=== PATIENT | female | born 1940 | race African-American/Black ===

== ENCOUNTER 2018-09-07 20:59 | Inpatient (IN) | payer MEDICARE, OTHER ==
--- NOTE | 2018-09-07 22:02 | ED Physician Chart ---
ED Chief Complaint/HPI - Patient Information Date Seen:: 09/07/18 Time Seen:: 21:57 Chief Complaint:: psych clearance History of Present Illness:: 77 yr old female here psych clearance Allergies:: Allergies Allergy/AdvReac Type Severity Reaction Status Date / Time Sulfa (Sulfonamide Allergy Verified 09/07/18 21:17 Antibiotics) Vitals:: Vital Signs - 8 hr 09/07/18 21:18 Temp 96.8 F HR 70 RR 18 BP 163/99 O2 Sat % 99 Family Medical History - Family Member Mother History Unknown: Yes ED Labs/Radiology/EKG Results - Lab Results Results: Laboratory Tests 09/07/18 21:46 POC Glucose 74 ED Septic Shock - . Is Septic Shock (SBP<90, OR Lactate>4 mmol\L) present?: No - <6hrs of presentation: Vital Signs: Vital Signs - 8 hr 09/07/18 21:18 Temp 96.8 F HR 70 RR 18 BP 163/99 O2 Sat % 99 ED Reassessment (Disposition) - Reassessment Reassessment Condition:: Improved - Diagnosis Diagnosis:: psych clearance - Aftercare/Follow up Instructions Aftercare/Follow-Up Instructions:: Counseled pt regarding lab results/diagnosis & need follow up - Patient Disposition Discharge/Transfer:: Home Condition at Disposition:: Stable
[2018-09-07 22:28] LABS: % BASOPHILS 1.6 % (0.0-2.0); % EOSINOPHILS 4.5 % (0.0-5.0); % LYMPHOCYTES 33.3 % (20.0-50.0); % MONOCYTES 6.3 % (2.0-10.0); % NEUTROPHILS 54.3 % (40.0-80.0); BASOPHILE ABSOLUTE 0.1 Th/cumm (0-0.2); EOSINOPHILE ABSOLUTE 0.2 Th/cmm (0.1-0.4); HEMATOCRIT 36.8 % (41.0-60); HEMOGLOBIN 12.1 gm/dL (12-16); LYMPHOCYTE ABSOLUTE 1.4 Th/cmm (1.5-3.0); MEAN CELL VOLUME 86.4 fl (81-100); MEAN CORPUSCULAR HEMOGLOBIN 28.3 pg (27.0-31.0); MEAN CORPUSCULAR HGB CONC 32.8 pg (28.0-36.0); MONOCYTE ABSOLUTE 0.3 Th/cmm (0.3-1.0); NEUTROPHILE ABSOLUTE 2.2 Th/cmm (1.8-8.0); PLATELET COUNT 463 Th/cmm (150-400); RED BLOOD COUNT 4.26 Mil/cmm (3.80-5.20); RED CELL DISTRIBUTION WIDTH 13.6 % (11.5-20.0); WHITE BLOOD COUNT 4.2 Th/cmm (4.8-10.8)
[2018-09-07 22:47] LABS: ALB/GLOB RATIO 1.1 (1.0-1.8); ALBUMIN 3.8 gm/dL (3.7-5.3); ALKALINE PHOSPHATASE 138 U/L (34-104); ANION GAP 12.1 (7.0-16.0); BILIRUBIN,TOTAL 0.6 mg/dL (0.3-1.0); BUN - UREA NITROGEN 19 mg/dL (7-25); CARBON DIOXIDE 26.3 mEq/L (21.0-31.0); CHLORIDE 104 mEq/L (98-107); CREATININE - SERUM 1.3 mg/dL (0.6-1.2); GLUCOSE 91 mg/dL (70-105); POTASSIUM SERUM 3.4 mEq/L (3.5-5.1); SGOT 13 U/L (13-39); SGPT/ALT 6 U/L (7-52); SODIUM SERUM 139 mEq/L (136-145); TOTAL PROTEIN,SERUM 7.4 gm/dL (6.0-8.3)
[2018-09-08 00:44] VITALS: BP 105/65
[2018-09-08] MEDS ORDERED: Fleet Enema 135 mL RC PRN (00:57)
[2018-09-08] MEDS ORDERED: Albuterol/Ipratropium Neb 3 ML AERS HHN PRN (00:57)
[2018-09-08] MEDS ORDERED: Non-Formulary Item 1 EA (Dextran 70/Hypromellose [Artificial Tears] 1 EACH) OP PRN (00:57)
[2018-09-08] MEDS ORDERED: Magnesium Hydroxide (MOM) 30 mL UDC PO PRN (01:22)
[2018-09-08] MEDS: INSULIN ASPART, RECOMBINANT 100 UNITS/ML SUBQ SCH (06:32)
[2018-09-08 06:42] LABS: CHOLESTEROL 201 mg/dL (<200); HDL -HIGH DENSITY LIPOPROTEIN 74 mg/dL (23-92); TRIGLYCERIDES 46 mg/dL (<150)
[2018-09-08] MEDS ORDERED: Polyvinyl Alcohol Ophth Soln 15 mL Bottle EACH EYE PRN (07:00)
[2018-09-08] MEDS ORDERED: INSULIN LISPRO SUBQ SCH (07:30)
[2018-09-08] MEDS: Multivitamin Tab PO SCH (09:44)
[2018-09-08] MEDS: Potassium Chloride 20 mEq ER Tab PO SCH (09:44)
[2018-09-08] MEDS: Lactobacillus Rhamnosus GG 15 Billion CFU CAP.SPRINK PO SCH (09:44)
[2018-09-08] MEDS: Ferrous Sulfate 325 MG TAB PO SCH (09:44)
[2018-09-08] MEDS: Pantoprazole 40 mg EC Tab PO SCH ×2 (09:51→16:07)
--- NOTE | 2018-09-08 14:09 | History & Physical ---
ADMIT DATE: 09/08/2018 IDENTIFYING INFORMATION: The patient is a 77-year-old female. CHIEF COMPLAINT: "I have too many problems at [facility]." HISTORY OF PRESENT ILLNESS: The patient was referred from [facility], patient has been striking, has been easily agitated. She sleeps well, eats well. The patient has amputated left leg three-quarter. She denies any auditory hallucinations. The patient denies any suicidal ideation, homicidal ideation; however, she looked disheveled, disorganized, internally preoccupied. PAST PSYCHIATRIC HISTORY: The patient reports she was seen by the psychiatrist at [facility]. She denies any prior suicide attempt. She denies prior hospitalizations. She report never tried to harm herself before. MEDICAL HISTORY: The patient is allergic to LASIX, LORAZEPAM, and SULFA. She has amputated left leg three-quarter. The patient also have hyperthyroidism, she is on methimazole. FAMILY AND SOCIAL HISTORY: The patient is single, never , no children. No kids. She lives at [facility]. LVM and no further information is available from the patient. MENTAL STATUS EXAMINATION: The patient was appropriately dressed, not well groomed. She was in a wheelchair. She has an amputated left leg. She denies any current intent to harm himself. Denies any intent to harm anybody. She reported having problems at [facility], unable to specify what problems, they are. She believed this is unable to tell me the date, where she is, why she is here, but she has been here because she has problem at [facility]. Her long-term memory is poor, cannot tell me her age. Recent memory is poor, she cannot remember the event exactly to admission. She denies any visual hallucinations, paranoia, any intent to harm herself or anybody. Her insight and judgment is impaired. IMPRESSION: Depression, not otherwise specified; psychosis, dementia. MEDICAL DIAGNOSES: Deferred to the medical doctor. She has amputated left leg. Hyperthyroidism. PLAN: We will do group therapy, milieu therapy, and individual therapy. ESTIMATED LENGTH OF STAY: 3-7 days. DISCHARGE CRITERIA: Decrease agitation, confusion after discharge, outpatient treatment. [facility]# [id number]
--- NOTE | 2018-09-08 18:20 | History & Physical ---
ADMIT DATE: PATIENT'S IDENTIFICATION: A 77-year-old female. REQUESTING PHYSICIAN: Dr. Viji Ferris. REASON FOR CONSULTATION: Medical management. CHIEF COMPLAINT: "I am fine." HISTORY SOURCE: Reviewing the chart, talking to nursing staff, and Emergency Room MD note. HISTORY OF PRESENT ILLNESS: A 77-year-old -[place] female with history of peripheral vascular disease, status post left below knee amputation, gastroesophageal reflux disease, hypertension, history of chronic pain syndrome, diabetes mellitus, presented to [facility] Emergency Room for evaluation of increasing agitation. The patient was seen by Emergency Room MD and subsequently advised to be admitted to Geropsych Unit for psychiatric care. PAST MEDICAL HISTORY: Remarkable for: 1. Hypertension. 2. Diabetes. 3. Peripheral vascular disease. 4. DJD. 5. Chronic pain syndrome. 6. Status post left below knee amputation. MEDICATIONS: Lactobacillus, artificial tears, Colace, Dulcolax, Fleet's enema, NovoLog insulin, hydrochlorothiazide, methimazole for hyperthyroidism, milk of magnesia, multivitamin, [place], pantoprazole, Tylenol, vitamin C, and Zofran. ALLERGIES: THE PATIENT IS ALLERGIC TO SULFA, LORAZEPAM AND LASIX. SOCIAL HISTORY: She is a resident of senior care. No history of smoking cigarette, alcohol, or drug use. FAMILY MEDICAL HISTORY: Unavailable. REVIEW OF SYSTEMS: Unable to get meaningful history from the patient due to current condition. PHYSICAL EXAMINATION: GENERAL: The patient is alert, awake, follows simple 1-step command. VITAL SIGNS: Temperature 98, pulse 74, respiratory rate 18, blood pressure 136/80. SKIN: Warm to touch. HEENT: Normocephalic, atraumatic. Extraocular muscles are intact. Exophthalmus noted. Tongue was pink and coated. Poor dentition noted. NECK: Supple, no JVD, no hepatojugular reflex. No lymphadenopathy, thyromegaly, or carotid bruit. HEART: Both heart sounds are regular. No S3, no S4, no murmur. CHEST AND LUNG: Equal in expansion, no expiratory wheezing. ABDOMEN: Soft. No guarding, no rigidity. Liver and spleen not palpable. No palpable mass. EXTREMITIES: Left above knee amputation noted. Peripheral pulses +1. No calf tenderness. NEUROLOGIC: Alert, awake, follows simple commands. Complex command, the patient is unable to follow. Mini mental status examination, unable to perform. Otherwise, the patient is moving upper and lower extremities without any difficulty. AVAILABLE DIAGNOSTIC DATA: Performed in the Emergency Room as well as stated [facility] has been reviewed as well. CLINICAL IMPRESSION: 1. Psychiatric disorder exacerbation. 2. Hypertension. 3. Diabetes. 4. Peripheral vascular disease. 5. Chronic kidney disease. 6. Degenerative joint disease. 7. Fall risk. 8. Hyperthyroidism. 9. Status post left above knee amputation. 10. Debility. 11. Decline in self-care and mobility. PLAN: 1. The patient is admitted at this time to Geropsych Unit. Psychiatric evaluation and management deferred to psychiatrist. 2. Resume her medications which includes sliding scale insulin for diabetes, methimazole for hyperthyroidism, [place] for pain control, hydrochlorothiazide for hypertension along with Protonix for GERD. Continue to require symptoms therapy, medication management, general nursing care, fall precautions, nutritional support as well. We will continue to follow this patient during the stay in the hospital. I sincerely thank you, Dr. Viji Ferris, for giving me the opportunity to participating in patient of yours. JOB# [id number]
[2018-09-09] MEDS: Pantoprazole 40 mg EC Tab PO SCH ×2 (06:36→09:00)
[2018-09-09] MEDS: INSULIN ASPART, RECOMBINANT 100 UNITS/ML SUBQ SCH (06:36)
[2018-09-09] MEDS: Potassium Chloride 20 mEq ER Tab PO SCH (09:15)
[2018-09-09] MEDS: Multivitamin Tab PO SCH (09:15)
[2018-09-09] MEDS: Lactobacillus Rhamnosus GG 15 Billion CFU CAP.SPRINK PO SCH (09:15)
[2018-09-09] MEDS: Ferrous Sulfate 325 MG TAB PO SCH (09:15)
--- NOTE | 2018-09-09 22:56 | Progress Notes ---
DATE: 09/09/2018 Case was discussed with staff of the patient, reviewed records. The patient continues to be confused, continues to be unable to make safe plan for self-care. Continues to be easily agitated, continues to have poor insight, unable to make safe plan for self-care. No side effects with the medication, no sedation, no nausea, no extrapyramidal symptoms. Continues to look disheveled, disorganized, internally preoccupied and we will continue outpatient group therapy, milieu therapy, and adjust medication as needed. [facility]# [id number]
[2018-09-10] MEDS: Pantoprazole 40 mg EC Tab PO SCH ×2 (06:45→16:30)
[2018-09-10] MEDS: INSULIN ASPART, RECOMBINANT 100 UNITS/ML SUBQ SCH (07:07)
[2018-09-10] MEDS: Ferrous Sulfate 325 MG TAB PO SCH (10:19)
[2018-09-10] MEDS: Lactobacillus Rhamnosus GG 15 Billion CFU CAP.SPRINK PO SCH (10:19)
[2018-09-10] MEDS: Hydrocodone/APAP 5mg/325mg Tab PO PRN (10:19)
[2018-09-10] MEDS: Potassium Chloride 20 mEq ER Tab PO SCH (10:20)
[2018-09-10] MEDS: Multivitamin Tab PO SCH (10:20)
--- NOTE | 2018-09-11 03:24 | Progress Notes ---
DATE: 09/10/2018 IDENTIFICATION: A 77-year-old female. SUBJECTIVE: The patient seen and examined. The patient is sitting in the chair. Upon further questioning, the patient denies any chest pain, shortness of breath, palpitation, dizziness, nausea, vomiting, headache. PHYSICAL EXAMINATION: VITAL SIGNS: Temperature 98, pulse is 74, respiratory rate is 18, blood pressure 144/74. HEENT: Remarkable for exophthalmus. NECK: Supple, no JVD. HEART: Regular. CHEST: Lung equal in expansion, no expiratory wheezing. ABDOMEN: Soft, no guarding or rigidity. Bowel sounds present. No palpable mass. EXTREMITIES: Left above-knee amputation noted. MEDICATION: Available medication admission record is reviewed. CLINICAL IMPRESSION: 1. Psychotic disorder exacerbation. 2. Hypertension. 3. Diabetes. 4. Left above knee amputation. 5. Peripheral vascular disease. 6. Chronic kidney disease. 7. Degenerative joint disease. 8. Hyperthyroidism. 9. Decline in self-care. 10. Fall risk. PLAN: 1. Psych medication as per psychiatrist. 2. Psych followup. 3. Low sodium diet. 4. Diabetes management. 5. Antiplatelet therapy. 6. Fall precautions. 7. General nursing care. 8. Methimazole. 9. Nutrition support. 10. Follow lab. 11. We will continue to follow this patient during the stay in the hospital. JOB# [id number]
[2018-09-11] MEDS: Pantoprazole 40 mg EC Tab PO SCH ×2 (06:36→16:46)
[2018-09-11] MEDS: INSULIN ASPART, RECOMBINANT 100 UNITS/ML SUBQ SCH (06:37)
[2018-09-11] MEDS: Ferrous Sulfate 325 MG TAB PO SCH (09:12)
[2018-09-11] MEDS: Potassium Chloride 20 mEq ER Tab PO SCH (09:13)
[2018-09-11] MEDS: Lactobacillus Rhamnosus GG 15 Billion CFU CAP.SPRINK PO SCH (09:13)
[2018-09-11] MEDS: Multivitamin Tab PO SCH (09:13)
[2018-09-11] MEDS: Hydrocodone/APAP 5mg/325mg Tab PO PRN (14:34)
--- NOTE | 2018-09-12 02:09 | Progress Notes ---
DATE: 09/11/2018 SUBJECTIVE: Chart reviewed and the patient interviewed. Also discussed the patient's condition with the staff and reviewed records and labs. The patient is still anxious and is still in a depressed mood. The patient also is still confused and forgetful and needs lots of redirections. The patient also did have disorganized thoughts and unable to provide any safe plan for self-care. On the other hand, the patient is compliant in taking her medication and no side effect of Remeron. ASSESSMENT: The patient is still confused and depressed. TREATMENT PLAN: Continue monitoring behavior and condition closely. Also, continue adjusting psychotropic medications and working on behavioral modification and discharge plans. JOB# [id number]
--- NOTE | 2018-09-12 05:18 | Progress Notes ---
DATE: 09/10/2018 PSYCHIATRIC PROGRESS NOTE Chart reviewed and the patient interviewed. Also discussed the patient's condition with the staff and reviewed records and labs. The patient is still confused and is still easily irritable and agitated and she still needs to be monitored closely. The patient also still has disorganized thoughts and unable to answer questions coherently. The patient also is irritable and angry and is resisting care. Otherwise, the patient is compliant, cooperative with taking her medications with no side effects of medications. ASSESSMENT: The patient is still confused and is still in irritable mood. TREATMENT PLAN: Continue to monitor her behavior and her condition closely because of her agitation and psychosis. Also, continue Remeron in a dose of 7.5 mg every day and working on behavioral modification and her irritability. JOB# [id number]
[2018-09-12] MEDS: INSULIN ASPART, RECOMBINANT 100 UNITS/ML SUBQ SCH (06:41)
[2018-09-12] MEDS: Pantoprazole 40 mg EC Tab PO SCH ×2 (06:42→16:26)
[2018-09-12] MEDS: Lactobacillus Rhamnosus GG 15 Billion CFU CAP.SPRINK PO SCH (09:03)
[2018-09-12] MEDS: Multivitamin Tab PO SCH (09:03)
[2018-09-12] MEDS: Ferrous Sulfate 325 MG TAB PO SCH (09:03)
[2018-09-12] MEDS: Potassium Chloride 20 mEq ER Tab PO SCH (09:03)
--- NOTE | 2018-09-13 06:23 | Progress Notes ---
DATE: 09/12/2018 PATIENT'S ID: A 77-year-old female. SUBJECTIVE: The patient seen and examined. The patient is lying in the bed. No new event. PHYSICAL EXAMINATION: VITAL SIGNS: On today's exam, temperature 98.2, pulse 81, respiratory rate 16, blood pressure 118/73. HEENT: Remarkable for exophthalmus. NECK: Supple, no JVD. HEART: Regular. CHEST AND LUNGS: Equal in expansion, no expiratory wheezing. ABDOMEN: Soft. No guarding, no rigidity. Bowel sounds present. No palpable mass. EXTREMITIES: Left above-knee amputation noted. Peripheral pulses on the right lower extremity +1. Medication available record has been reviewed. CLINICAL IMPRESSION: 1. Psychotic disorder exacerbation. 2. Hypertension. 3. Diabetes. 4. Chronic kidney disease. 5. Degenerative joint disease. 6. Hyperthyroidism. 7. Declining self-care. 8. Fall risk. 9. Left above knee amputation. PLAN: 1. Psych medication and followup. 2. Antihypertensive medicine. 3. Monitor blood sugar and blood pressure. 4. Diabetes management. 5. Methimazole. 6. General nursing care. 8. Nutritional support. 9. Follow lab. 10. Care plan reviewed and discussed with staff. JOB# [id number]
== END 2018-09-12 17:30 | DRG 885 ==
LOC: ER 20:59 → GERO 23:15
PROVIDERS: ADMIT Psychiatry & Neurology Psychiatry; ATTEND Psychiatry & Neurology Psychiatry
DX: F23 Brief psychotic disorder (principal); N18.9 Chronic kidney disease, unspecified; F03.90 Unspecified dementia, unspecified severity, without behavioral disturbance, psychotic disturbance, mood disturbance, and anxiety; E05.90 Thyrotoxicosis, unspecified without thyrotoxic crisis or storm; K21.9 Gastro-esophageal reflux disease without esophagitis; E11.51 Type 2 diabetes mellitus with diabetic peripheral angiopathy without gangrene; M19.90 Unspecified osteoarthritis, unspecified site; G89.4 Chronic pain syndrome; I12.9 Hypertensive chronic kidney disease with stage 1 through stage 4 chronic kidney disease, or unspecified chronic kidney disease; E11.22 Type 2 diabetes mellitus with diabetic chronic kidney disease; Z91.81 History of falling; Z89.512 Acquired absence of left leg below knee; Z88.2 Allergy status to sulfonamides; Z88.8 Allergy status to other drugs, medicaments and biological substances
CPT/HCPCS: 36415-UA; 80053-TC; 80061-TC; 82948-90; 83036-90; 85025-TC; 94760; J1815; Q0162; Z7610